=== PATIENT | male | born 1965 | race Caucasian/White ===

== ENCOUNTER 2022-08-04 00:50 | Day surgery (SDC) | payer OTHER, SELFPAY ==
[2022-07-23 14:34] VITALS: BMI 27.2
--- NOTE | 2022-08-01 14:41 | PM.HPGS ---
History of Present Illness History of Present Illness Consent: Risks, benefits, and alternatives have been discussed and questions answered. Patient agrees to proceed with procedure. Chief complaint: GERD Narrative: Pito Cavazos is a 57 year old male who has been having episodes that felt to him like ulcer pain.? For a few days to have discomfort as well as vomiting and heartburn.? His epigastric pain is usually a burning. It could be worse if he drinks alcohol or spicy foods. He has been taking omeprazole 20 mg daily but does not feel that it has been helping. previously, he had use [id number] Nexium, Which did give him some relief.? He does not use NSAIDs on a regular basis but does take aspirin 81 mg per day.? He drinks about 12 beers per week. Review of Systems Review of Systems: All systems reviewed & are unremarkable except as noted in HPI and below PMFSH Past Medical History Medical History Elevated PSA Hyperlipidemia Hypertension Prostate cancer Urgency of urination Surgical History Surgical History History of lumbar spinal fusion History of prostate surgery Hx of arthroscopy of shoulder Family History Family History Father Heart disease Social History Social History Smoking packs per day: 1 Smoking cigarettes per day: 20.0 Years smoked: 30 Smoking pack-years: 30.00 Smoking status: Current every day smoker Tobacco type: cigarettes Alcohol intake: current Drinks per week: 12 Alcohol use details: social Substance use: never Substance use type: does not use Living arrangements: with family Spiritual care concerns: No Meds Home Medications and Allergies Home Medications Medication Instructions Recorded Confirmed Type aspirin 81 mg tablet,delayed 81 mg PO DAILY 06/23/22 07/23/22 History release olmesartan 20 mg tablet 20 mg PO DAILY 06/23/22 07/23/22 History omeprazole 20 mg capsule,delayed 20 mg PO DAILY 06/23/22 07/23/22 History release valacyclovir 1 gram tablet 1,000 mg PO DAILY 06/23/22 07/23/22 History atorvastatin 40 mg tablet 40 mg PO DAILY 07/23/22 07/23/22 History multivitamin with minerals-folic 1 tablet PO DAILY 07/23/22 07/23/22 History acid 0.4 mg tablet Allergies Allergy/AdvReac Type Severity Reaction Status Date / Time No Known Allergies Allergy Verified 08/04/22 12:01 Exam Const: General: alert Orientation/consciousness: patient oriented x3 Resp: Auscultation: clear to auscultation bilaterally Cardio: Rhythm: regular rhythm GI: GI Palp: Yes Soft to palpation and No Tenderness to palpation present (GI) Neuro: General: patient oriented x3 Assessment and Plan Assessment and plan (1) Epigastric pain: Code(s): R10.13 - Epigastric pain Status: Acute Assessment and Plan: EGD with possible biopsy or dilatation or cautery.
--- NOTE | 2022-08-04 11:59 | WPDANESEPPF ---
Anes - Initial Pre Proc Eval Procedure: Operation Date: 08/04/22 12:30 Proposed Procedures p Esophagogastroduodenoscopy - Reji Cervantes MD Date/Time: 08/04/22 11:59 Surgeon: Reji Cervantes MD Pre Op Diagnosis: GERD Patient Data Age: 57 Gender: M Height: 1.8 m Weight: 88.5 kg Allergies Allergy/AdvReac Type Severity Reaction Status Date / Time No Known Allergies Allergy Verified 07/23/22 14:35 Home Medications Medication Instructions Recorded Confirmed Type aspirin 81 mg tablet,delayed 81 mg PO DAILY 06/23/22 07/23/22 History release olmesartan 20 mg tablet 20 mg PO DAILY 06/23/22 07/23/22 History omeprazole 20 mg capsule,delayed 20 mg PO DAILY 06/23/22 07/23/22 History release valacyclovir 1 gram tablet 1,000 mg PO DAILY 06/23/22 07/23/22 History atorvastatin 40 mg tablet 40 mg PO DAILY 07/23/22 07/23/22 History multivitamin with minerals-folic 1 tablet PO DAILY 07/23/22 07/23/22 History acid 0.4 mg tablet Patient hx anesthesia problems: none Family hx anesthesia problems: none Results Review: All pre-operative results and documents have been reviewed as part of the pre-operative evaluation. [facility] Past Medical History Medical History (Updated 07/01/22 @ 14:06 by Reji Cervantes MD) Elevated PSA Hyperlipidemia Hypertension Prostate cancer Urgency of urination Surgical History Surgical History History of lumbar spinal fusion History of prostate surgery Hx of arthroscopy of shoulder Family History Family History Father Heart disease Social History Social History Smoking packs per day: 1 Smoking cigarettes per day: 20.0 Years smoked: 30 Smoking pack-years: 30.00 Smoking status: Current every day smoker Tobacco type: cigarettes Alcohol intake: current Drinks per week: 12 Alcohol use details: social Substance use: never Substance use type: does not use Living arrangements: with family Spiritual care concerns: No Anes - Eval Final PreProcedure Day of Procedure 08/04/22 11:59 Patient weight: normal Heart: regular rate and rhythm Lungs: clear to auscultation Airway: Mallampati scale class II Neurological: alert and oriented Last oral intake: >/= 8 hours ASA classification: III Emergent: no Anesthetic plan: proceed Anesthesia type and monitoring: general GIVS and standard monitoring Results Review: All pre-operative results and documents have been reviewed as part of the pre-operative evaluation. Informed Consent: The patient's anesthetic plan and its attendant risks and benefits were discussed with the patient/family/POA. Questions were solicited and answers provided to the satisfaction of the patient/family/POA.
[2022-08-04 12:01] VITALS: BP 134/94; PULSE 84; RESP 18; TEMP 36.3; O2SAT 100
[2022-08-04] MEDS: LACTATED RINGERS 1,000 ML 150 ML IV CONT (12:14)
[2022-08-04 13:19] VITALS: BP 113/79; PULSE 80; RESP 23; O2SAT 100
[2022-08-04 13:29] VITALS: BP 92/68; PULSE 67; RESP 24; O2SAT 99
[2022-08-04 13:39] VITALS: BP 109/69; PULSE 65; RESP 17; O2SAT 100
== END 2022-08-04 13:46 | disposition home or self-care (01) ==
PROVIDERS: PCP Family Medicine; Visit Provider Internal Medicine Gastroenterology
PROC: 0DJ08ZZ Inspection of Upper Intestinal Tract, Via Natural or Artificial Opening Endoscopic (ICD-10-PCS; CPT 43235; principal; 2022-08-04 12:30)
DX: R10.13 Epigastric pain (principal); K21.00 Gastro-esophageal reflux disease with esophagitis, without bleeding; Z79.82 Long term (current) use of aspirin; I10 Essential (primary) hypertension; E78.5 Hyperlipidemia, unspecified; Z85.46 Personal history of malignant neoplasm of prostate; Z98.1 Arthrodesis status; F17.210 Nicotine dependence, cigarettes, uncomplicated
CPT/HCPCS: 43239; 87081; 88305; J2704; J7120